=== PATIENT | female | born 1980 | race Caucasian/White ===

== ENCOUNTER 2017-03-19 21:11 | Emergency (ER) | payer SELFPAY ==
[~2017-03-19] VITALS: Ht 152.4 cm; Wt 115.2 kg
--- NOTE | 2017-03-19 21:15 | NUR ---
PT PLACED IN BED 10 BY EMS.
[2017-03-19 21:16] VITALS: BP 118/86
--- NOTE | 2017-03-19 21:30 | NUR ---
36Y/F BIBA TO ER C/O SOB. PMH ASTHMA, NKA. PER EMS PT WAS FOUND TO BE VERY TACHYPNIC, LABORED BREATHING, W/ WHEEZING. ON ARRIVAL TO ER PT HAS TACHYPNEA, BL BREATH SOUNDS ARE CLEAR THROUGHOUT, PT HAS HUMIDIFIED OXYGEN, PT STATES SHE IS FEELING BETTER AND IS DENYING SOB, CP, N/V/D. PT IN BED SIDE RAILS UP X2, ER MD NOTIFIED OF PT STATUS.
[2017-03-19] MEDS ORDERED: predniSONE 20 MG TAB PO ONE (21:40)
--- NOTE | 2017-03-19 21:50 | NUR ---
PT IN BED, VSS, NO RESPIRATORY DISTRESS NOTED, WILL CONTINUE TO MONITOR.
[2017-03-19 22:19] VITALS: BP 136/71
--- NOTE | 2017-03-19 22:19 | NUR ---
Patient discharged with v/s stable. Written and verbal after care instructions given and explained. Patient alert, oriented and verbalized understanding of instructions. Ambulatory with steady gait. All questions addressed prior to discharge. ID band removed. Patient advised to follow up with PMD. Rx of ALBUTEROL 90MCG, PREDNISONE 50MG given. Patient educated on indication of medication including possible reaction and side effects. Opportunity to ask questions provided and answered.
== END 2017-03-19 22:19 | disposition home or self-care (01) ==
LOC: MED 21:11
DX: J45.901 Unspecified asthma with (acute) exacerbation (principal)
CPT/HCPCS: 71010; 99283; J7512